=== PATIENT | female | born 1960 | race Caucasian/White ===

== ENCOUNTER 2016-12-07 10:56 | Outpatient (CLI) | payer OTHER | END 2016-12-07 10:57 | disposition home or self-care (01) | DX: Z12.31 Encounter for screening mammogram for malignant neoplasm of breast (principal) ==

== ENCOUNTER 2017-05-03 15:43 | Outpatient (CLI) | payer OTHER ==
[2017-05-03 16:06] LABS: BASOPHILS # (AUTO) 0.1 10^3/uL (0.0-0.1); EOSINOPHILS # (AUTO) 0.1 10^3/uL (0.0-0.7); EOSINOPHILS % (AUTO) 1.9 %; HCT - HEMATOCRIT 38.1 % (37.0-47.0); HGB - HEMOGLOBIN 12.6 g/dL (12.0-16.0); LYMPHOCYTES # (AUTO) 1.7 10^3/uL (1.5-3.5); LYMPHOCYTES % (AUTO) 33.6 %; MEAN CORPUSCULAR HEMOGLOBIN 29.8 pg (27.0-31.0); MEAN CORPUSCULAR HGB CONC 33.1 g/dL (32.0-36.0); MEAN CORPUSCULAR VOLUME 90.1 fL (81.0-99.0); MEAN PLATELET VOLUME 7.6 fL (7.9-10.8); MONOCYTES # (AUTO) 0.5 10^3/uL (0.0-1.0); MONOCYTES % (AUTO) 9.7 %; NEUTROPHILS # (AUTO) 2.8 10^3/uL (1.5-6.6); NEUTROPHILS % (AUTO) 53.8 %; RED BLOOD COUNT 4.23 10^6/uL (4.20-5.40); RED CELL DISTRIBUTION WIDTH 14.2 % (12.0-15.0); UNCORRECTED WHITE BLOOD COUNT 5.1 x10^3/uL; WHITE BLOOD COUNT 5.1 x10^3/uL (4.8-10.8)
[2017-05-03 18:22] LABS: THYROID STIMULATING HORMONE 0.18 uIU/mL (0.34-5.60)
[2017-05-03 18:30] LABS: FOLLICLE STIMULATING HORMONE 4.02 mIU/mL
[2017-05-03 18:31] LABS: LUTEINIZING HORMONE 4.03 mIU/mL
== END 2017-05-03 15:44 | disposition home or self-care (01) ==
LOC: LAB 15:43
PROVIDERS: ATTEND Obstetrics & Gynecology
DX: N92.4 Excessive bleeding in the premenopausal period (principal)
CPT/HCPCS: 36415; 83001; 83002; 84439; 84443; 85025

== ENCOUNTER 2017-05-05 16:39 | Outpatient (CLI) | payer OTHER ==
--- NOTE | 2017-05-06 09:41 | Ultrasound Report ---
EXAM: PELVIC ULTRASOUND EXAM DATE: 05/05/2017 05:32 PM. CLINICAL HISTORY: EXCESSIVE BLEEDING IN THE PREMENOPAUSAL PERIOD. COMPARISON: None. TECHNIQUE: Realtime transabdominal pelvic scan performed to identify the uterus and adnexa and as an overview of other pelvic structures, followed by transvaginal scan to provide greater detail of the u terus and adnexa, with static image documentation. FINDINGS: Uterus: 14.4 x 7.3 x 0.9 cm, volume 488 cc. Anteverted position. Normal overall size and echotexture. Masses: Right mid uterine fibroid measuring 4.7 x 4.6 x 4.4 cm and left mid uterine fibroid measuring up to 2.5 x 2.2 x 1.9 cm. Endometrium: 13.9 mm. Normal. Cervix: Nabothian cysts. Right Ovary: 2.8 x 1.5 x 1.2 cm, volume 2.7 cc. Normal echotexture and blood flow. Left Ovary: 2.1 x 1.0 x 1.3 cm, volume 1.4 cc. Normal echotexture and blood flow. Free Fluid: None. Other: None. IMPRESSION: 1. Mild amount is uterus. 2. The endometrium is thickened measuring up to 14 mm. Correlate with stage of menses. 3. The ovaries image normally. [facility] Referring Provider Line: [phone] SITE ID: [id number]
== END 2017-05-05 16:40 | disposition home or self-care (01) ==
LOC: DI 16:39
PROVIDERS: ATTEND Obstetrics & Gynecology
DX: N92.4 Excessive bleeding in the premenopausal period (principal)
CPT/HCPCS: 76857

== ENCOUNTER 2018-12-11 10:59 | Outpatient (CLI) | payer BC, OTHER ==
--- NOTE | 2018-12-11 12:32 | XRAY Report ---
Reason: ANKLE PAIN, LEFT Procedure Date: 12/11/2018 Accession Number: [id number] / [id number] Procedure: [facility] - Ankle 3 View LT CPT Code: FULL RESULT: EXAM: LEFT ANKLE RADIOGRAPHY EXAM DATE: 12/11/2018 11:16 AM. CLINICAL HISTORY: ANKLE PAIN, LEFT. COMPARISON: None. TECHNIQUE: 3 views. FINDINGS: Bones: There is a 3 mm triangular osseous body resembling chip or avulsion fracture fragment inferior to the medial malleolus. No appreciable donor site on the provided series. No other potential fractures noted. Joints: Normal. No effusion. No subluxations. The ankle mortise is normally aligned. Soft Tissues: Soft tissue swelling overlying the lateral malleolus. IMPRESSION: 3 mm osseous fragment inferior to the medial malleolus consistent with chip or avulsion fracture fragment. Lateral soft tissue swelling. No additional fractures appreciated. No malalignment. [facility]
--- NOTE | 2018-12-11 12:35 | XRAY Report ---
Reason: FOOT PAIN, LEFT Procedure Date: 12/11/2018 Accession Number: [id number] / [id number] Procedure: [facility] - Foot 3 View LT CPT Code: FULL RESULT: EXAM: LEFT FOOT RADIOGRAPHY EXAM DATE: 12/11/2018 11:15 AM. CLINICAL HISTORY: FOOT PAIN, LEFT. COMPARISON: None. TECHNIQUE: 3 views. FINDINGS: Bones: Normal. No fractures or bone lesions. Joints: Normal. No subluxations. Soft Tissues: Normal. No soft tissue swelling. IMPRESSION: Normal foot radiography. [facility]
== END 2018-12-11 11:00 | disposition home or self-care (01) ==
LOC: DI.WCP 10:59
PROVIDERS: ATTEND Physician Assistant
DX: M25.572 Pain in left ankle and joints of left foot (principal); M79.672 Pain in left foot

== ENCOUNTER 2018-12-18 11:31 | Outpatient (CLI) | payer BC, OTHER ==
--- NOTE | 2018-12-19 08:13 | Mammography Report ---
Reason: SCREENING MAMMO Procedure Date: 12/18/2018 Accession Number: [id number] / [id number] Procedure: [facility] - Screening Mammo Dig Bilat CPT Code: FULL RESULT: EXAM: Screening Mammo Dig Bilat DATE: 12/18/2018 11:51 AM CLINICAL HISTORY: Routine screening. No personal history of breast cancer. Family history breast cancer in an aunt age 50. TECHNIQUE: Bilateral CC and MLO views were obtained. COMPARISON: 12/07/2016 through 06/24/2010 FINDINGS: The breasts demonstrate heterogeneously dense fibroglandular parenchyma bilaterally. Bilateral breasts: There are no suspicious masses, calcifications or areas of distortion. IMPRESSION: Negative examination RECOMMENDATION: Routine annual screening unless otherwise clinically indicated. BI-RADS CATEGORY 1: Negative STANDARD QUALIFYING STATEMENTS: 1. This examination was reviewed with the aid of Computer-Aided Detection (CAD). 2. A negative or benign imaging report should not preclude biopsy if clinically suspicious findings are present. 3. Dense breasts may obscure an underlying neoplasm. 4. This examination was reviewed without the aid of 3D breast imaging (tomosynthesis).
== END 2018-12-18 11:32 | disposition home or self-care (01) ==
LOC: DI.N 11:31
DX: Z12.31 Encounter for screening mammogram for malignant neoplasm of breast (principal); Z80.3 Family history of malignant neoplasm of breast
CPT/HCPCS: 77067